=== PATIENT | female | born 1965 | race Caucasian/White ===

== ENCOUNTER 2024-08-16 16:10 | Outpatient (REF) | payer MEDICAID, SELFPAY ==
[2024-08-16 18:06] LABS: Anion Gap 10 (12-20); Blood Urea Nitrogen 15 mg/dL (9-16); Calcium 8.8 mg/dL (8.4-10.2); Carbon Dioxide 27 mmol/L (22-29); Chloride 109 mmol/L (96-108); Estimated Glomerular Filt Rate > 60; Glucose Random 81 mg/dL (60-115); Potassium 3.9 mmol/L (3.3-5.1); Sodium 142 mmol/L (135-145)
[2024-08-17 07:59] LABS: HBS Num1 0.74 mIU/mL (0-7.99); HBc Num1 0.11 S/CO (0.00-0.79); HBsAGNum1 0.29 S/CO (0.00-0.99); HIV AB/AG Nonreactive (Nonreactive); HIV Num 1 0.06 S/CO (0.00-0.99); Hepatitis B Core Antibody Nonreactive (Nonreactive); Hepatitis B Surface Antigen Negative (Negative); ~HepC Num1 0.09 S/CO (0.00-0.79); ~Hepatitis B Surface Antibody NONREACTIVE (Nonreactive); ~Hepatitis C Antibody Nonreactive (Nonreactive)
[2024-08-17 08:02] LABS: Syphilis Screen Nonreactive (Nonreactive)
[2024-08-19 05:03] LABS: TS Negative Control Passed; TS Panel A 0; TS Panel B 5; TS Positive Control Passed; TSpotTB Borderline (Negative)
== END 2024-08-16 16:11 | disposition home or self-care (01) ==
LOC: HO.CHCLDS 16:10
PROVIDERS: Family Medicine; Visit Provider Internal Medicine
DX: I10 Essential (primary) hypertension (principal); Z13.9 Encounter for screening, unspecified
CPT/HCPCS: 36415; 80048; 86481; 86704; 86706; 86780; 86803; 87340; 87389

== ENCOUNTER 2024-08-26 09:48 | Outpatient (REF) | payer MEDICAID, SELFPAY ==
[2024-08-26 11:26] LABS: Cholesterol 234 mg/dL (<200); HDL Cholesterol 42 mg/dL (>40); LDL Cholesterol Calculated 144 mg/dL (<100); Triglycerides 240 mg/dL (<150)
[2024-08-28 20:23] LABS: TS Negative Control Passed; TS Panel A 0; TS Panel B 7; TS Positive Control Passed; TSpotTB Borderline (Negative)
[2024-08-30 23:19] LABS: Metanephrine, Free <25 pg/mL (<=57); Normetanephrines, Free 139 pg/mL (<=148); Total Metanephrine, Free 139 pg/mL (<=205)
[2024-09-02 17:28] LABS: Aldosterone/Renin Ratio 11.3 Ratio (0.9-28.9); Plasma Renin Activity 0.53 ng/mL/h (0.25-5.82)
== END 2024-08-26 09:49 | disposition home or self-care (01) ==
LOC: HO.CHCLDS 09:48
PROVIDERS: Family Medicine; Visit Provider Internal Medicine
DX: I10 Essential (primary) hypertension (principal); E78.5 Hyperlipidemia, unspecified; Z11.1 Encounter for screening for respiratory tuberculosis
CPT/HCPCS: 36415; 80061; 82088; 83835; 86481

== ENCOUNTER 2024-09-02 09:33 | Outpatient (REF) | payer MEDICAID, SELFPAY ==
--- NOTE | ~2024-09-02 | XR_ITS ---
EXAMINATION: XR CHEST CLINICAL INFORMATION: bordeline T spot COMPARISON: None available. TECHNIQUE: 2 views of the chest were obtained. FINDINGS: The cardiac, hilar, and mediastinal contours are normal. The lungs are clear bilaterally. There is no pneumothorax or pleural effusion. There is no focal osseous or soft tissue abnormality. XR/XR chest 2V IMPRESSION: No active pulmonary disease. Electronically signed by: Emile Bergeron MD 09/02/2024 09:55 AM EDT
--- OUTSIDE RECORDS SUMMARY | 2024-09-02 10:04 | XMS_ITS | Clinical Summary ---
Author Organization [employer] Address [address] [place] [address] [address] [place] [address] Care Team Providers Care Checkout Operator Name Role Phone America Babb MD Primary Care Provider [phone] Allergies No known active allergies Medications meclizine (Antivert) 25 MG tablet Take 25 mg by mouth if needed in the morning, at noon, and at bedtime. 06/05/19 25 Active ondansetron ODT (Zofran-ODT) 4 MG disintegrating tablet Take 4 mg by mouth every 8 (eight) hours if needed. 06/05/19 25 Active NIFEdipine CC (Adalat CC) 30 MG 24 hr tabletIndications :Primary hypertension Take 2 tablets (60 mg) by mouth Once per day. 30 tablet 3 07/09/19 25 Active olmesartan (Benicar) 20 MG tabletIndications :Primary hypertension Take 1 tablet (20 mg) by mouth Once per day. 30 tablet 11 08/17/19 25 026 Active atenolol (Tenormin) 50 MG tabletIndications :Primary hypertension Take 0.5 tablets (25 mg) by mouth Once per day. 15 tablet 1 08/31/19 25 Active atorvastatin (Lipitor) 80 MG tabletIndications :Hyperlipidemia, unspecified hyperlipidemia type Take 1 tablet (80 mg) by mouth at bedtime. 30 tablet 11 08/31/19 25 026 Active atorvastatin (Lipitor) 80 MG tablet Take 80 mg by mouth at bedtime. 06/05/19 25 025 Discontinued(Re order (will not trigger notification to Pharmacy)) olmesartan (Benicar) 5 MG tablet Take 1 tablet (5 mg) by mouth Once per day. 90 tablet 1 06/09/19 25 025 Discontinued(Do se adjustment) atenolol (Tenormin) 50 MG tablet Take 0.5 tablets (25 mg) by mouth Once per day. 15 tablet 1 06/09/19 25 025 Discontinued(Re order (will not trigger notification to Pharmacy)) olmesartan (Benicar) 5 MG tabletIndications :Primary hypertension 2 tabs once a day 60 tablet 11 08/07/19 025 Discontinued Active Problems Problem Noted Date Diagnosed Date Primary hypertension 06/09/2024 Assessment & Plan (06/11/2024 10:15 AM EST): Uncontrolled. Target < 140/90 mmHg Nursing Visit Instructions: - If SBP < 140/DBP <90 mmHg in more than 75% of home self-monitoring, continue current medication regimen and make f/u with PCP in 3 month - If SBP >140-165/DBP >90-115 mmHg , add incr olmesartan and f/u with PCP in 1 month - If SBP > 165/ DBP> 115 mmHg, consult with covering provider - If SBP <90/DBP <50 mmHg, consult with covering provider. Dizziness 06/04/2024 Assessment & Plan (06/11/2024 10:16 AM EST): In the setting of ? Vestibular neuritis, still having nystagmus, reviewed ED notes. Labs reviewed. Cont current meds, rtc of worsening/no improvement Encounters Date Type Department Care Team Description 09/01/2024 Telephone [facility] [address], [place] [phone] America Babb MD Lab Results 08/30/2024 Telephone [facility] [address] [place] [address] Dipti Martinez MD 08/27/2024 Orders Only [facility] [address], [place] [phone] Dipti Martinez MD Encounter for health-related screening (Primary Dx) 08/26/2024 Telephone [facility] [address], [place] [phone] Tara Dias MD Results 08/20/2024 Telephone [facility] [address] [place] [address] America Babb MD Results 08/19/2024 Telephone [facility] [address] [address] Tiffany Fuller DO Results 08/16/2024 3:45 PM EDT Office Visit [facility] [address] [place] [address] Dipti Martinez MD Primary hypertension (Primary Dx) 08/16/2024 Travel 08/06/2024 10:45 AM EST Clinical Support [facility] [address] [place] [address] Wing Oro RN Primary hypertension [I10] 08/06/2024 Orders Only [facility] [address] [place] [phone] Dipti Martinez MD Primary hypertension (Primary Dx); Encounter for health-related screening 08/06/2024 Travel 07/30/2024 10:30 AM EST Clinical Support [facility] [address] [place] [address] Wing Oro RN Primary hypertension [I10] 07/30/2024 Travel 07/09/2024 10:30 AM EST Clinical Support [facility] [address] [place] [address] Wing Oro RN Primary hypertension [I10] 07/09/2024 Orders Only [facility] [address] [place] [address] Dipti Martinez MD Primary hypertension (Primary Dx) 07/09/2024 Travel 06/29/2024 1:00 PM EST Clinical Support [facility] [address] [place] [address] Delilah Shahid RN Primary hypertension 06/29/2024 Orders Only [facility] [address] [place] [phone] Marisol Michael MD 06/29/2024 Travel 06/15/2024 Telephone [facility] [address] [place] [address] America Babb MD No Show 06/11/2024 Telephone [facility] [address] [place], [place] [phone] America Babb MD 06/09/2024 10:45 AM EST Office Visit [facility] [address], [place] [phone] America Babb MD Primary hypertension (Primary Dx); Dizziness; Hyperlipidemia, unspecified hyperlipidemia type; Breast cancer screening by mammogram; Colon cancer screening; Encounter for health-related screening 06/09/2024 Travel 06/08/2024 Telephone [facility] [address] [place] [address] America Babb MD CHART PREP from Last 3 Months Family History Medical History Relation Name Comments Diabetes Father Hypertension Father Thyroid disease Mother Vertigo Mother Hypertension Sister Thyroid disease Sister Relation Name Status Comments Father Mother Sister Social History Tobacco Use Types Packs/Day Years Used Date Smoking Tobacco: Never Passive Smoke Exposure: Never Smokeless Tobacco: Never Tobacco Cessation:Counseling Given: Not Answered Alcohol Use Standard Drinks/Week Comments Yes 0 (1 standard drink = 0.6 oz pur e alcohol) Social Depression Answer Date Recorded Patient Health Questionnaire-9 Score 2 06/09/2024 Patient Health Questionnaire-9 Score 2 06/09/2024 Last PHQ-9: Questionnaire Data Not on file 0 06/09/2024 Housing Stability Answer Date Recorded What is your housing situation today? I have yahir lanier 06/01/[address] you li ve. Do you have problems with any of the following? None of the above 06/01/2024 Food Insecurity Answer Date Recorded Within the past 12 months, y ou worried that your food would run out before you got money to buy more: Never True 06/01/2024 Within the past 12 months,th e food you bought just didn't last and you didn't have enough money to get more: Never True Transportation Answer Date Recorded In the past 12 months, has l ack of transportation kept you from medical appts, meetings, work or from getting things needed for daily living? Yes, it has kept me from medical appointments or getting medications. 06/01/2024 Utilities Answer Date Recorded In the past 12 months, has t he electric, gas, oil or water company threatened to shut off services in your home? No 06/01/2024 Depression Answer Date Recorded Patient Health Questionnaire-2 Score 0 06/09/2024 Internet Access Answer Date Recorded Internet Access Q1 Yes 06/01/2024 Internet Access Q2 Not on file 06/01/2024 Comments Unknown Sex and Gender Information Value Date Recorded Sex Assigned at Female 06/09/2024 10:23 AM EST Legal Sex Female 10:40 AM EDT Gender Identity Female 06/09/2024 10:23 AM EST Sexual Orientation Straight 06/09/2024 10 :23 AM EST Last Filed Vital Signs Vital Sign Reading Time Taken Comments Blood Pressure 142/78 08/16/2024 3:47 PM EDT Pulse 78 08/16/2024 3:47 PM EDT Temperature 36.7 ??C (98.1 ??F) 08/16/2024 3:47 PM ED T Respiratory Rate 20 08/16/2024 3:47 PM EDT Oxygen Saturation 98% 08/16/2024 3:47 PM EDT Inhaled Oxygen Concentration - - Weight 71.4 kg (157 lb 6.4 oz) 08/16/2024 3:47 P M EDT Height 151 cm (4' 11.45 ) 08/16/2024 3:47 PM EDT Body Mass Index 31.31 08/16/2024 3:47 PM EDT Plan of Treatment Upcoming Encounters Date Type Department Care Team (Late st Contact Info) Description 09/15/2024 2:45 PM EDT Clinical Support [facility] [address] [place] [address] Health Maintenance Due Date Last Done Comments CT Colonography 1965 Colonoscopy 1965 Colorectal Cancer Screening 1965 FIT DNA/Cologuard 1965 FIT 1965 FOBT 1965 Sigmoidoscopy 1965 Hepatitis B Vaccines (1 of 3 - 19+ 3-dose series) 1984 Pap Smear 1986 Cervical Cancer Screening 09/07/1995 HPV/Cotest 09/07/1995 Mammogram 2005 Pneumococcal Vaccine: 50+ Years (1 of 1 - PCV) 09/07/2015 Influenza Vaccine (#1) 2024 Postp oned from 02/01/2024 (Patient Refused) SDOH Screening 06/01/2025 06/01/2024 COVID-19 Vaccine (1 - 2023-2 5 season) 2025 Postponed from 01/31 (Patient Refused) DTaP/Tdap/Td Vaccines (1 - Tdap) 06/09/2025 Postponed from 09/06 (Patient Refused) Depression Screening 06/09/2025 06/09/2024, 06/09/2024 Zoster Vaccines (1 of 2) 06/09/2025 Pos tponed from 09/07/2015 (Patient Refused) Alcohol/Substance Use Screening 08/16/2025 08/16/2024 Tobacco Screening 08/16/2025 08/16/2024 Lipid Panel 08/26/2029 08/26/2024 RSV Patients and Patients Aged 60 years or older (1 - 1-dose 75+ series) 2040 HIV Screening Completed 08/16/2024 Hepatitis C Screening Completed 08/16/2024 HIB Vaccines Aged Out No longer eligi ble based on patient's age to complete this topic HPV Vaccines Aged Out No longer eligi ble based on patient's age to complete this topic Hepatitis A Vaccines Aged Out No long er eligible based on patient's age to complete this topic IPV Vaccines Aged Out No longer eligi ble based on patient's age to complete this topic Meningococcal Vaccine Aged Out No dania christina eligible based on patient's age to complete this topic RSV under 20 months Aged Out No longe r eligible based on patient's age to complete this topic Rotavirus Vaccines Aged Out No longer eligible based on patient's age to complete this topic Procedures Procedure Name Priority Date/Time Associated Diagnosis Comments XR CHEST 2 VIEWS Routine 09/02/2024 9:40 AM EDT Encounter for health-related screening T-SPOT(R).TB Routine 08/26/2024 10:34 AM EDT Encounter for health-related screening METANEPHRINES, FRACT, FREE, LC/MS/MS, PLASMA Routine 08/26/2024 10:34 AM EDT Primary hypertension LIPID PANEL, STANDARD Routine 08/26/2024 10:34 AM EDT Hyperlipidemia, unspecified hyperlipidemia type BASIC METABOLIC PANEL Routine 08/16/2024 4:16 PM EDT Primary hypertension HEPATITIS B SURFACE ANTIBODY, QUALITATIVE Routine 08/16/2024 4:16 PM EDT Encounter for health-related screening HEPATITIS B CORE AB TOTAL Routine 08/16/2024 4:16 PM EDT Encounter for health-related screening HEPATITIS B SURFACE ANTIGEN, EIA Routine 08/16/2024 4:16 PM EDT Encounter for health-related screening T-SPOT(R).TB Routine 08/16/2024 4:16 PM EDT Encounter for health-related screening SYPHILIS SCREEN Routine 08/16/2024 4:16 PM EDT Encounter for health-related screening HEPATITIS C AB W/REFL TO HCV RNA, QN, PCR Routine 08/16/2024 4:16 PM EDT Encounter for health-related screening HIV 1/2 ANTIGEN/ANTIBODY, FOURTH GENERATION W/RFL Routine 08/16/2024 4:16 PM EDT Encounter for health-related screening from Last 3 Months Results * XR Chest 2 Views (09/02/2024 9:40 AM EDT) Anatomical Region Laterality Modality Chest Radiographic Val ging 09/02/2024 9:40 AM EDT Narrative 09/02/2024 9:59 AM EDT ? [facility] ?[address] ?[place] [address] ?XRay Report ? Signed ? Patient: Nova Conrad,Ladonna M ?MR#: ?? [id number] ? : 1965 ?Acct:[id number] ? Age/Sex: 58 / F ?ADM Date: 04/03/25 ? Loc: HO.XRAY ? Attending Dr: America Babb MD ? Ordering Physician: Dipti Martinez MD ?? Date of Service: 09/02/24 ?? Procedure(s): XR chest 2V ?? Accession Number(s): [id number] ? cc: Dipti Martinez MD; America Babb MD ? EXAMINATION: ?? XR CHEST ? CLINICAL INFORMATION: ?? bordeline T spot ? COMPARISON: ?? None available. ? TECHNIQUE: ?? 2 views of the chest were obtained. ? FINDINGS: ?? The cardiac, hilar, and mediastinal contours are normal. ? The lungs are clear bilaterally. There is no pneumothorax or pleural ?? effusion. ? There is no focal osseous or soft tissue abnormality. ? XR/XR chest 2V ?? IMPRESSION: ?? No active pulmonary disease. ? Electronically signed by: ??Emile Bergeron MD ??09/02/2024 09:55 AM EDT RP ? Dictated By: ?Emile Bergeron MD ? Signed By: ?<Electronically signed by Emile Bergeron MD in OV> ?09/02/24 0955 ? DD/ 0940 ? TD/TT: 09/02/24 0946 ? Heating Repair Technician: ? Procedure Note Fabi, Image - 09/02/[address] [address] XRay Report Signed Patient: Ladonna Burnham MMR#: [id number] : 1965Acct:[id number] Age/Sex: 58 / FADM Date: 09/02/24 Loc: [facility] Attending Dr: America Babb MD Ordering Physician: Dipti Martinez MD Date of Service: 09/02/24 Procedure(s): XR chest 2V Accession Number(s): [id number] cc: Dipti Martinez MD; America Babb MD EXAMINATION: XR CHEST CLINICAL INFORMATION: bordeline T spot COMPARISON: None available. TECHNIQUE: 2 views of the chest were obtained. FINDINGS: The cardiac, hilar, and mediastinal contours are normal. The lungs are clear bilaterally. There is no pneumothorax or pleural effusion. There is no focal osseous or soft tissue abnormality. XR/XR chest 2V IMPRESSION: No active pulmonary disease. Electronically signed by: Emile Bergeron MD 09/02/2024 09:55 AM EDT RP Dictated By: Emile Bergeron MD Signed By: <Electronically signed by Emile Bergeron MD in OV> 09/02/2455 DD/ 9 TD/TT: 09/02/24945 Heating Repair Technician: us Dipti Martinez MD IMG XR PROCEDURES Edited Re sult - Final * Metanephrines, Fractionated, Free, LC/MS/MS, Plasma (08/26/2024 10:34 AM EDT) Metanephrine, Free <25 <=57 pg/mL [facility] Comment:This test was develo ped and its analytical performancecharacteristics have been determined by [employer] [place], [place]. It hasnot been cleared or approved by the U.S. Food and DrugAdministration. This assay has been validated pursuantto the CLIA regulations and is used for clinicalpurposes. Normetanephrine, Free 139 <=148 pg/mL [facility] Comment:This test was develo ped and its analytical performancecharacteristics have been determined by [employer] [place], [place]. It hasnot been cleared or approved by the U.S. Food and DrugAdministration. This assay has been validated pursuantto the CLIA regulations and is used for clinicalpurposes. Total, Free (MN+NMN) 139 <=205 pg/mL [facility] Comment: For additional information, please refer tohttp://education.[employer]/faq/MetFractFree(This link is being provided for informational/educatioinformational/educational purposes only.)Elevations >4-fold upper reference range: stronglysuggestive of a pheochromocytoma(1).Elevations >1- 4-fold upper reference range:significant but not diagnostic, may be due tomedications or stress. Suggest running 24 hr urinefractionated metanephrines and/or serum Chromagranin Afor confirmation.Reference:(1)Lesli Love et al, Plasma Chromogranin Aor Urine Fractionated Metanephrines Follow-Up TestingImproves the Diagnostic Accuracy of Plasma FractionatedMetanephrines for Pheochromocytoma. The Journal ofClinical Endocrinology # Metabolism 93(1), 91-95, 2007.This test was developed and its analytical performancecharacteristics have been determined by [employer] [place], [place]. It hasnot been cleared or approved by the U.S. Food and DrugAdministration. This assay has been validated pursuantto the CLIA regulations and is used for clinicalpurposes.THIS TEST WAS PERFORMED AT:[facility] [place], [place] ??[id number] HAY MD,PHD Blood Venous blood specimen / Unknown 08/26/2024 10:34 AM EDT 08/26/2024 10:34 AM EDT us Dipti Martinez MD LAB BLOOD ORDERABLES Final Result [facility] [address] [place] [phone] * (ABNORMAL) T-SPOT??.TB (08/26/2024 10:34 AM EDT) Only the most recent of2 resultswithin the time period is included. T Spot TB Borderli ne(A) Negative [facility] Comment:The patient's test r esult cannot be definitivelyclassified as positive or negative. Retesting of thepatient is recommended although there is no setguideline established for the time interval betweenan initial borderline result and a retest.The T-SPOT.TB is a diagnostic aid. If the test resultremains borderline upon retesting, other diagnosticsand/or epidemiologic information should be used tohelp determine the Mycobacterium tuberculosis infectionstatus of the patient.The T- SPOT.TB test is qualitative and results arereported as positive, borderline, or negative, giventhat the test controls perform as expected. In linewith the Centers for Disease Control and Prevention's2010 recommendation to report quantitative measurementsalongside the qualitative result, the laboratoryprovides spot counts for informational purposes only.The T-SPOT.TB test should not be interpreted as aquantitative test. TS PANEL A 0 [facility] TS PANEL B 7 [facility] Negative Control Passed [facility] Positive Control Passed [facility] Comment:For additional infor frandy, please refer tohttp://education.[employer]/faq/XYP091(This link is being provided for informational/educational purposes only.)REPORT COMMENT:REC'D AT [facility] TEST WAS PERFORMED AT:[employer] [id number] [place] [address]DXAFEAVBRIAN HAY MD,PHD 08/26/2024 10:3 4 AM EDT 08/26/2024 10:34 AM EDT us Dipti Martinez MD LAB BLOOD ORDERABLES Final Result [facility] [address] [place], [place] [phone] * (ABNORMAL) Lipid Panel, Standard (08/26/2024 10:34 AM EDT) Triglycerides 240(H) <150 mg/dL [facility] Comment:Desirable Triglyceri de: less than 150 mg/dLBorderline High Triglyceride 150-199 mg/dLHigh Triglyceride: 200-499 mg/dLVery High Triglyceride: greater than or equal to 5OO mg/dL Cholesterol 234(H) <200 mg/dL [facility] Comment:Desirable Cholestero l: less than 200 mg/dLBorderline High Cholesterol: 200-239 mg/dLHigh Cholesterol: greater than 239 mg/dL LDL Cholesterol Calculated 144(H) <100 mg/dL [facility] Comment:Desirable LDL: less than 100 mg/dLNear Optimal/Above Optimal LDL: 110- 129 mg/dLBorderline High LDL: 130-159 mg/dLHigh LDL: 160-189 mg/dLVery High LDL: greater than or equal to 190 mg/dL HDL Cholesterol 42 >40 mg/dL [facility] Comment:Desirable HDL: great er than 40 mg/dL Note: This HDL assay may give artificially low results in patients with liver disease. Blood Venous blood specimen / Unknown 08/26/2024 10:34 AM EDT 08/26/2024 10:34 AM EDT America Babb MD LAB BLOOD ORDERABLES Final Re sult Performing Organization Address [facility] Co de Phone Number [facility] [address] [place] [phone] * Syphilis Screen (08/16/2024 4:16 PM EDT) Syphilis Screen Nonreactive Nonreactive [facility] Blood 08/16/2024 4:16 PM EDT 08/16/2024 5:25 PM EDT America Babb MD LAB BLOOD ORDERABLES Final Re sult Performing Organization Address City/[facility] Co de Phone Number [facility] [address] [place] [phone] * Hepatitis C Antibody with Reflex to HCV, RNA, Quantitative, Real-Time PCR (08/16/2024 4:16 PM EDT) Hepatitis C Antibody Nonreactive Nonreactive [facility] Comment:Antibodies to HCV no t detected; does not exclude early acuteHCV infection. Blood Venous blood specimen / Unknown 08/16/2024 4:16 PM EDT 08/16/2024 5:25 PM EDT America Babb MD LAB BLOOD ORDERABLES Final Re sult Performing Organization Address [facility]/ZIP Co de Phone Number [facility] [address] [place] [phone] * Hepatitis B surface antigen, EIA (08/16/2024 4:16 PM EDT) Hepatitis B Surface Ag Negative Negative [facility] Blood Venous blood specimen / Unknown 08/16/2024 4:16 PM EDT 08/16/2024 5:25 PM EDT America Babb MD LAB BLOOD ORDERABLES Final Re sult Performing Organization Address [facility] Co de Phone Number [facility] [address] [place] [phone] * Hepatitis B Core Antibody, Total (08/16/2024 4:16 PM EDT) Pathologist [facility] Hepatitis B Core Antibody Nonreactive Nonreactive [facility] Blood Venous blood specimen / Unknown 08/16/2024 4:16 PM EDT 08/16/2024 5:25 PM EDT America Babb MD LAB BLOOD ORDERABLES Final Re sult Performing Organization Address [facility] Co de Phone Number [facility] [address] [place] [phone] * HIV-1/2 Antigen and Antibodies, Fourth Generation, with Reflexes (08/16/2024 4:16 PM EDT) Pathologist [facility] HIV AB/AG Nonreactive Nonreactive [facility] Comment:HIV-1 p24 Ag and/or HIV-1/HIV-2 Ab not detected.A test result that is nonreactive does not exclude thepossibility of exposure to or infection with HIV-1 and/orHIV-2. Nonreactive results in this assay for individualswith prior exposure to HIV-1 and/or HIV-2 may be due toantigen and antibody levels that are below the limit ofdetection of this assay.The [employer] 11niMelinta HIV Ag/Ab Combo assay result andsupplemental assay results should be interpreted inconjunction with the patient's clinical presentation,history and other laboratory results. If the results areinconsistent with clinical evidence, additional testing issuggested to confirm the result. Blood Venous blood specimen / Unknown 08/16/2024 4:16 PM EDT 08/16/2024 5:25 PM EDT America Babb MD LAB BLOOD ORDERABLES Final Re sult Performing Organization Address [facility]/ZIP Co de Phone Number [facility] [address] [place] [phone] * Hepatitis B Surface Antibody, Qualitative (08/16/2024 4:16 PM EDT) ~Hepatitis B Surface Antibody NONREACTIVE Nonreactive [facility] Comment:Nonreactive: < 8.00 mIU/mL Blood Venous blood specimen / Unknown 08/16/2024 4:16 PM EDT 08/16/2024 5:25 PM EDT America Babb MD LAB BLOOD ORDERABLES Final Re sult Performing Organization Address [facility] Co de Phone Number [facility] [address] [place] [phone] * (ABNORMAL) Basic Metabolic Panel (08/16/2024 4:16 PM EDT) Sodium 142 135 - 145 mmol/L [facility] Potassium 3.9 3.3 - 5.1 mmol/L [facility] Chloride 109(H) 96 - 108 mmol/L [facility] Carbon Dioxide 27 22 - 29 mmol/L [facility] Anion Gap 10(L) 12 - 20 [facility] Urea Nitrogen (BUN) 15 9 - 16 mg/dL [facility] Creatinine, Serum 0.87 0.5 - 1.4 mg/dL [facility] Estimated Glomerular Filt Rate >60 [facility] Comment:Chronic Kidney Disea se: Estimated GFR < 60 mL/min/1.93f3Qbywqu Kidney Disease: Estimated GFR < 15 mL/min/1.73m2 Glucose 81 60 - 115 mg/dL [facility] Calcium 8.8 8.4 - 10.2 mg/dL [facility] Blood Venous blood specimen / Unknown 08/16/2024 4:16 PM EDT 08/16/2024 5:25 PM EDT us Dipti Martinez MD LAB BLOOD ORDERABLES Final Result [facility] [address] [place] [phone] from Last 3 Months Insurance [facility] H[employer] F[employer] Care Teams Checkout Operator Relationship Specialty Start Date End Date America Babb MD [address] [place] [address] [phone] PCP - General Family Medicine 06/09/24
--- OUTSIDE RECORDS SUMMARY | 2024-09-02 10:04 | XMS_ITS | Encounter Summary ---
Author Organization [employer] Address [address] [facility] [address] [place] [address] Care Team Providers Care Salesforce Specialist Name Role Phone America Babb MD Primary Care Provider [phone] Encounter Details Date Type Department Care Team (Late st Contact Info) Description 08/06/2024 Orders Only [facility] MEDICINE [address] [place] [address] Dipti Martinez MD [address] [place] [address] Primary hypertension (Primary Dx); Encounter for health-related screening Social History Tobacco Use Types Packs/Day Years Used Date Smoking Tobacco: Never Passive Smoke Exposure: Never Smokeless Tobacco: Never Alcohol Use Standard Drinks/Week Comments Yes 0 [...] Orientation Straight 06/09/2024 10 :23 AM EST documented as of this encounter Plan of Treatment Upcoming Encounters Date Type Department Care Team (Late st Contact Info) Description 09/15/2024 2:45 PM EDT Clinical Support [facility] MED & PEDS [address] [place] [address] documented as of this encounter Procedures Procedure Name Priority Date/Time Associated Diagnosis Comments T-SPOT(R).TB Routine 08/26/2024 10:34 AM EDT Encounter for health-related screening documented in this encounter Results * (ABNORMAL) T-SPOT??.TB (08/26/2024 10:34 AM EDT) T Spot TB Borderli ne(A) Negative [facility] Comment:The patient's test r esult [...] as aquantitative test. TS PANEL A 0 [facility] TS PANEL B 7 [facility] Negative Control Passed [facility] Positive Control Passed [facility] Comment:For additional infor migdaliaedne, please refer tohttp://education.MindBites/faq/RHY778(This link is being provided for informational/educational purposes only.)REPORT COMMENT:REC'D AT [facility] TEST WAS PERFORMED AT:[employer] [id number] [place] [address]LWXSBTEBRIAN HAY MD,PHD 08/26/2024 10:3 4 AM EDT 08/26/2024 10:34 AM EDT Dipti Martinez MD LAB BLOOD ORDERABLES Final Result [facility] [address] [place] [address] [phone] documented in this encounter Visit Diagnoses Diagnosis Primary hypertension- Primary Unspecified essential hypertension Encounter for health-related screening documented in this encounter Additional Health Concerns Assessment Noted Time PHQ-9 Depression Total Score: 2 06/09/19 25 11:15 AM EST documented as of this encounter Care Teams Salesforce Specialist Relationship Specialty Start Date End Date America Babb MD [address] [place] [id number] PCP - General Family Medicine 06/09/24 documented as of this encounter
--- OUTSIDE RECORDS SUMMARY | 2024-09-02 10:04 | XMS_ITS | Clinical Summary ---
Author Organization [facility] Address [address] [place] [address] Phone Care Team Providers Care Director Of Research And Development Name Role Phone Physician, No Pcp Primary Care Provider Unavaila ble Allergies No known active allergies Medical History Medical History Date Comments Hypertension Social History Tobacco Use Types Packs/Day Years Used Date Smoking Tobacco: Never Assessed Comments Unknown Sex and Gender Information Value Date Recorded Sex Assigned at Not on file Legal Sex Female 9:36 PM EST Gender Identity Not on file Sexual Orientation Not on file Obstetrics History Plan of Treatment Health Maintenance Due Date Last Done Comments Breast Cancer Screening 1965 DTaP,Tdap,and Td Vaccines (1 - Tdap) 1984 Hepatitis B Vaccines (1 of 3 - 19+ 3-dose series) 1984 Cervical Cancer Screening: P ap Smear 1986 Pneumococcal Vaccine: 50+ Ye ars (1 of 1 - PCV) 09/07/2015 Zoster Vaccines (1 of 2) 09/07/2015 COVID-19 Vaccine (2023-2 5 season) 2024 Colorectal Cancer Screening: Colonoscopy 06/04/2024 Depression Screening 06/04/2024 HIV Screening 06/04/2024 Hepatitis C Screening 06/04/2024 Social Influencers of Health Screening 06/04/2024 Influenza Vaccine (Season Ended) 2025 HIB Vaccines Aged Out No longer eligi [...] on patient's age to complete this topic MMR Vaccines Aged Out No longer eligi ble based on patient's age to complete this topic Meningococcal ACWY Vaccine Aged Out N o longer eligible based on patient's age to complete this topic Meningococcal B Vacine Aged Out No lo nger eligible based on patient's age to complete this topic Pneumococcal Vaccine: Pediat rics (0 to 5 Years) and At-Risk Patients (6 to 64 Years) Aged Out No longer eligible b ased on patient's age to complete this topic RSV Immunization Patients Un renny 20 months Aged Out No longer eligible b ased on patient's age to complete this topic Varicella Vaccines Aged Out No longer eligible based on patient's age to complete this topic Insurance MEDICAID - [place] Care Teams Director Of Research And Development Relationship Specialty Start Date End Date Physician, No Pcp PCP - General 06/03/24
--- OUTSIDE RECORDS SUMMARY | 2024-09-02 10:04 | XMS_ITS | Encounter Summary ---
Author Organization [employer] Address [address] [facility] [address] [place] [address] Care Team Providers Care Sales Performance Analyst Name Role Phone America Babb MD Primary Care Provider [phone] Encounter Details Date Type Department Care Team ([facility] st Contact Info) Description 06/29/2024 Orders Only [facility] [address] [place] [address] Marisol Michael MD [address] [place] [address] Social History Tobacco Use Types Packs/Day Years [...] Description 09/15/2024 2:45 PM EDT Clinical Support [facility] MED & PEDS [address] [place] [address] documented as of this encounter Visit Diagnoses Not on filedocumented in this encounter Additional Health Concerns Assessment Noted Time PHQ-9 Depression Total Score: 2 06/09/19 11:15 AM EST documented as of this encounter Care Teams Sales Performance Analyst Relationship Specialty Start Date End Date America Babb MD [address] [place] [address] PCP - General Family Medicine 06/09/24 documented as of this encounter
--- OUTSIDE RECORDS SUMMARY | 2024-09-02 10:04 | XMS_ITS | Encounter Summary ---
Author Organization [employer] Address [address] [facility] 7 [place] [address] Care Team Providers Care Platform Inspector Name Role Phone America Babb MD Primary Care Provider [phone] Encounter Details Date Type Department Care Team ([facility] st Contact Info) Description 08/27/2024 Orders Only [facility] MED & PEDS [address] [place], [place] [phone] Dipti Martinez MD [address] [place], [place] [phone] Encounter for health-related screening (Primary Dx) Social History Tobacco Use Types Packs/Day Years [...] Upcoming Encounters Date Type Department Care Team ([facility] st Contact Info) Description 09/15/2024 2:45 PM EDT Clinical Support [facility] MED & PEDS [address] [place] [address] documented as of this encounter Procedures Procedure Name Priority Date/Time Associated Diagnosis Comments XR CHEST 2 VIEWS Routine 09/02/2024 9:40 AM EDT Encounter for health-related screening documented in this encounter Results * XR Chest 2 Views (09/02/2024 9:40 AM EDT) Anatomical Region Laterality Modality Chest Radiographic Val ging 09/02/2024 9:40 AM EDT Narrative 09/02/2024 9:59 AM EDT ? [facility] ?[address] ?[place] [address] ?XRay Report ? Signed ? Patient: Nova Conrad,Ladonna M ?MR#: ?? [id number] ? : 1965 ?Acct:[id number] ? Age/Sex: 58 / F ?ADM Date: 04/03/25 ? Loc: HO.XRAY ? Attending Dr: America Babb MD ? Ordering Physician: Dipti Martinez MD ?? Date of Service: 09/02/24 ?? Procedure(s): XR chest 2V ?? Accession Number(s): [id number] ? cc: Dipti Martinez MD; America Babb [...] DD/ 0940 ? TD/TT: 09/02/24 0946 ? Analyzer Sales: ? Procedure Note Fabi, yRlee - 09/02/[address] [address] XRay Report Signed Patient: Ladonna Burnham MMR#: [id number] : 1965Acct:[id number] Age/Sex: 58 / FADM Date: 09/02/24 Loc: [facility] Attending Dr: America Babb MD Ordering Physician: Dipti Martinez MD Date of Service: 09/02/24 Procedure(s): XR chest 2V Accession Number(s): [id number] cc: Dipti Martinez MD; America Babb MD [...] Emile Bergeron MD in OV> 09/02/2455 DD/ TD/TT: 09/02/24945 Analyzer Sales: us Dipti Martinez MD IMG XR PROCEDURES Edited Re sult - Final documented in this encounter Visit Diagnoses Diagnosis Encounter for health-related screening- Primary documented in this encounter Additional Health Concerns Assessment Noted Time PHQ-9 Depression Total Score: 2 06/09/19 11:15 AM EST documented as of this encounter Care Teams Platform Inspector Relationship Specialty Start Date End Date America Babb MD [address] [place] [address] PCP - General Family Medicine 06/09/24 documented as of this encounter
--- OUTSIDE RECORDS SUMMARY | 2024-09-02 10:04 | XMS_ITS | Encounter Summary ---
Author Organization [employer] Address [address] [facility] [address] [place] [address] Care Team Providers Care Manager Ob Name Role Phone America Babb MD Primary Care Provider [phone] Encounter Details Date Type Department Care Team ([facility] st Contact Info) Description 08/30/2024 Telephone [facility] CH[facility] MED & PEDS [address] [place], [place] [phone] Dipti Martinez MD [address] [place] [address] Social History Tobacco Use Types Packs/Day Years [...] AM EST documented as of this encounter Miscellaneous Notes * Telephone Encounter - Juana Hernandez RN - 08/30/2024 2:11 PM EDT Patient requesting medication refills for Atorvastatin and Atenolol. Scripts qued and sent to provider. documented in this encounter Plan of Treatment Upcoming Encounters Date Type Department Care Team (Late st Contact Info) Description 09/15/2024 2:45 PM EDT Clinical Support [facility] CH[facility] MED & PEDS [address] [place] [address] documented as of this encounter Visit Diagnoses Diagnosis Hyperlipidemia, unspecified hyperlipidemia type Primary hypertension Unspecified essential hypertension documented in this encounter Additional Health Concerns Assessment Noted Time PHQ-9 Depression Total Score: 2 06/09/19 11:15 AM EST documented as of this encounter Care Teams Manager Ob Relationship Specialty Start Date End Date America Babb MD [address] [place] [address] PCP - General Family Medicine 06/09/24 documented as of this encounter
--- OUTSIDE RECORDS SUMMARY | 2024-09-02 10:04 | XMS_ITS | Encounter Summary ---
Author Organization [employer] Address [address] [facility] [address] [place] [address] Care Team Providers Care Iron Cutter Name Role Phone America Babb MD Primary Care Provider [phone] Encounter Details Date Type Department Care Team ([facility] st Contact Info) Description 07/09/2024 Orders Only [facility] CHC MED & PEDS [address] [place], [place] [phone] Dipti Martinez MD [address] [place] [address] Primary hypertension (Primary Dx) Social History Tobacco Use Types [...] Description 09/15/2024 2:45 PM EDT Clinical Support [facility] CHC MED & PEDS [address] [place] [address] documented as of this encounter Visit Diagnoses Diagnosis Primary hypertension- Primary Unspecified essential hypertension documented in this encounter Additional Health Concerns Assessment Noted Time PHQ-9 Depression Total Score: 2 06/09/19 11:15 AM EST documented as of this encounter Care Teams Iron Cutter Relationship Specialty Start Date End Date America Babb MD [address] [place] [address] PCP - General Family Medicine 06/09/24 documented as of this encounter
--- OUTSIDE RECORDS SUMMARY | 2024-09-02 10:04 | XMS_ITS | Encounter Summary ---
Author Organization [employer] Address [address] [facility] 7[address] [place] [address] Care Team Providers Care Solo Musician Name Role Phone America Babb MD Primary Care Provider [phone] Reason for Visit * Reason Onset Date Comments Lab Results 09/01/2024 Encounter Details Date Type Department Care Team ([facility] st Contact Info) Description 09/01/[address] [facility] MEDICINE [address] [place] [address] America Babb MD [address] [place] [address] Lab Results Social History Tobacco Use Types Packs/Day Years [...] encounter Miscellaneous Notes * Telephone Encounter - Pat Boothe RN - 09/01/2024 3:30 PM EDT Message received from [facility] lab reporting results for T-spot TB ordered on 08/26/24: Borderline. Message sent to ordering provider Dr. Martinez. documented in this encounter Plan of Treatment Upcoming Encounters Date Type Department Care Team (Late st Contact Info) Description 09/15/2024 2:45 PM EDT Clinical Support [facility] MED & PEDS [address] [place] [address] documented as of this encounter Visit Diagnoses Not on filedocumented in this encounter Additional Health Concerns Assessment Noted Time PHQ-9 Depression Total Score: 2 06/09/19 11:15 AM EST documented as of this encounter Care Teams Solo Musician Relationship Specialty Start Date End Date America Babb MD [address] [place] [address] PCP - General Family Medicine 06/09/24 documented as of this encounter
--- OUTSIDE RECORDS SUMMARY | 2024-09-02 10:04 | XMS_ITS | Encounter Summary ---
Author Organization [employer] Address [address] [place] [address] 7[address] [place] [address] Care Team Providers Care Small Engine Mechanic Name Role Phone America Babb MD Primary Care Provider [phone] Reason for Referral * Consultation (Routine) - Authorized Specialty Diagnoses / Procedures Referred By Chilango kim Referred To Contact Gastroenterology Diagnoses Colon cancer screening America Babb MD [address] [place] [address] Phone: tel: fax: Gastroenterology Dept., [address]/[place] [place], Elevator [address] to Level [address] [place], [place] Phone: tel: fax: Referral ID Status Reason Start Date Expiration Date Visits Requested Visits Authorized [id number] Authorized Specialty Services Required 06/09/2024 06/09/2025 1 1 * Imaging (Routine) - Closed Specialty Diagnoses / Procedures Referred By Chilango kim Referred To Contact Radiology Diagnoses Breast cancer screening by mammogram Procedures BI Mammogram Screening Tomosynthesis Bilateral America Babb MD [address] [place] [address] Phone: tel: fax: [facility] Referral ID Status Reason Start Date Expiration Date Visits Re quested Visits Authorized [id number] Closed 06/09/2024 06/09/2025 1 1 Reason for Visit * Reason Comments Establish Care Encounter Details Date Type Department Care Team (Latest Contact Info) Description 06/09/2024 10:45 AM EST Office Visit [facility] [address] [place] [address] America Babb MD [address] [place] [address] Primary hypertension (Primary Dx); Dizziness; Hyperlipidemia, unspecified hyperlipidemia type; Breast cancer screening by mammogram; Colon cancer screening; Encounter for health-related screening Social History Tobacco [...] is your housing situation today? I have yahirejff lanier 06/01/[address] you [...] AM EST documented as of this encounter Last Filed Vital Signs Vital Sign Reading Time Taken Comments Blood Pressure 160/90 06/09/2024 10:37 AM EST Pulse 68 06/09/2024 10:37 AM EST Temperature 36.2 ??C (97.2 ??F) 06/09/2024 10:[address] Respiratory Rate 20 06/09/2024 10:37 AM EST Oxygen Saturation 98% 06/09/2024 10:37 AM EST Inhaled Oxygen Concentration - - Weight 69.1 kg (152 lb 6.4 oz) 06/09/2024 10:37 AM EST Height 149 cm (4' 10.66 ) 06/09/2024 10:37 AM ES T Body Mass Index 31.14 06/09/2024 10:37 AM EST documented in this encounter Progress Notes * America Babb MD - 06/09/2024 10:45 AM EST Subjective Patient ID: Ladonna Martines is a 58 y.o. female who presents for Establish Care. Previous PCP: Bobby Ro PMH: Past Medical History: No date: Hypertension Psurghx: x 3 All: No Known Allergies Meds: Reviewed Past Surgical History: No date: ANKLE FRACTURE SURGERY; Right Comment: [facility] No date: SECTION, LOW TRANSVERSE Comment: x3 No date: TUBAL LIGATION Review of patient's family history indicates: Problem: Thyroid disease Relation: Mother Name: Age of Onset: (Not Specified) Problem: Other (Vertigo) Relation: Mother Name: Age of Onset: (Not Specified) Problem: Diabetes Relation: Father Name: Age of Onset: (Not Specified) Problem: Hypertension Relation: Father Name: Age of Onset: (Not Specified) Problem: Hypertension Relation: Sister Name: Age of Onset: (Not Specified) Problem: Thyroid disease Relation: Sister Name: Age of Onset: (Not Specified) Ladonna is 58 yo F with PMH of HTN, HLD, and vestibular neuritis who presents with her daughter fornew patient visit. Patient was seen in ED at [facility] 6 days ago for vomiting, room- spinning dizziness, and was diagnosed with vestibular neuritis. While at the ED, her systolic BP was 186, and there was concern for stroke. Imaging did not show evidence of CVA. Patient says since leaving hospital four days ago, she has been feeling better. She has been taking nifedipine 30mg, atenolol 50mg, meclizine, atorvastatin 80mg, and Zofran since discharge. She reports that she is still having some room-spinning dizziness and nausea, that is worse when she stands up, but it has improved significantly. Ladonna notes that she has noticed a rash under both her eyes that appeared in the last few days since starting the medications. She says it is a little itchy, but not too bothersome. Ladonna reports that she has hypertension and was prescribed meds for BP control in the [facility], including Olmesartan. She continued taking the meds she had until she ran out 6 months ago.She has been taking her BP at home since, and it has been high, 140-160 systolic. Ladonna denies any other chronic medical conditions. Review of Systems Constitutional: Negative for appetite change, fatigue and fever. HENT: Negative for congestion, postnasal drip and rhinorrhea. Eyes: Negative for discharge and redness. Respiratory: Negative for apnea, cough, chest tightness and shortness of breath. Cardiovascular: Negative for chest pain. Gastrointestinal: Negative for abdominal pain. Endocrine: Negative for polyphagia. Genitourinary: Negative for difficulty urinating, dysuria and urgency. Musculoskeletal: Negative for arthralgias. Neurological: Positive for dizziness. Negative for light-headedness, numbness and headaches. Hematological: Negative for adenopathy. Does not bruise/bleed easily. Objective Visit Vitals BP (!) 160/90 (BP Location: Right arm, Patient Position: Sitting, BP Cuff Size: Adult) Pulse 68 Temp 97.2 ??F (36.2 ??C) (Oral) Resp 20 Ht 4' 10.66 (1.49 m) Wt 152 lb 6.4 oz (69.1 kg) SpO2 98% BMI 31.14 kg/m?? Smoking Status Never BSA 1.69 m?? Physical Exam Constitutional: General: She is not in acute distress. Appearance: She is not ill-appearing. HENT: Head: Normocephalic and atraumatic. Nose: No congestion. Eyes: Extraocular Movements: Right eye: Nystagmus present. Left eye: Nystagmus present. Pulmonary: Effort: Pulmonary effort is normal. No respiratory distress. Breath sounds: Normal breath sounds. Musculoskeletal: Cervical back: Normal range of motion. Neurological: General: No focal deficit present. Mental Status: She is alert. Psychiatric: Mood and Affect: Mood normal. Assessment/Plan Problem List Items Addressed This Visit Dizziness In the setting of ? Vestibular neuritis, still having nystagmus, reviewed ED notes. Labs reviewed. Cont current meds, rtc of worsening/no improvement Primary hypertension - Primary Uncontrolled. Target < 140/90 mmHg Nursing Visit [...] <90/DBP <50 mmHg, consult with covering provider. Other Visit Diagnoses Hyperlipidemia, unspecified hyperlipidemia type Relevant Orders Lipid Panel, Standard Breast cancer screening by mammogram Relevant Orders BI Mammogram Screening Tomosynthesis Bilateral Colon cancer screening Relevant Orders Referral to Gastroenterology Encounter for health-related screening Relevant Orders HIV-1/2 Antigen and Antibodies, Fourth Generation, with Reflexes Hepatitis C Antibody with Reflex to HCV, RNA, Quantitative, Real-Time PCR Syphilis Screen T-SPOT??.TB Hepatitis B surface antigen, EIA Hepatitis B Core Antibody, Total Hepatitis B Surface Antibody, Qualitative * Juana Hernandez RN - 06/09/2024 10:45 AM EST TC to patient via tube coremaker. Reviewed lab results. Patient stated she had stopped taking her atorvastatin bc she had run out. RN educated patient the importance of taking prescribed medication, and how to call for a refill. Patient requested refill for 2 medications. All questions and concerns were addressed with patient. Patient stated verbal understanding and agrees with plan. documented in this encounter Miscellaneous Notes * Assessment & Plan Note - America Babb MD - 06/11/2024 10:15 AM EST Associated Problem(s): Dizziness In the setting of ? Vestibular neuritis, still having nystagmus, reviewed ED notes. Labs reviewed. Cont current meds, rtc of worsening/no improvement * Assessment & Plan Note - America Babb MD - 06/11/2024 10:14 AM EST Associated Problem(s): Primary hypertension Uncontrolled. Target < 140/90 mmHg Nursing Visit [...] <90/DBP <50 mmHg, consult with covering provider. * Result Encounter Note - Dipti Martinez MD - 06/09/2024 10:45 AM EST Please call. Very elevated cholesterol on atorvastatin 80 mg once a day. Please find out if patientis compliant to medication. Advise a low-cholesterol diet and repeat lipid panel in 3 months also. If the lipid panel is still elevated we will consider adding Zetia 10 mg once a day documented in this encounter Plan of Treatment Upcoming Encounters Date Type Department Care Team (Late st Contact Info) Description 09/15/2024 2:45 PM EDT Clinical Support [facility] [address] [place] [address] Scheduled Orders Name Type Priority Associated Diagnoses Orde r Schedule BI Mammogram Screening Tomosynthesis Bilateral Imaging Routine Breast cancer screening by mammogram Expected: 06/09/2024, Expires: 08/07/2025 Scheduled Referrals Name Type Priority Associated Diagnoses Order Schedule Referral to Gastroenterology Outpatient Referral Routine Colon cancer screening Expected: 06/09/2024 (Approximate), Expires: 06/09/2025 documented as of this encounter Procedures Procedure Name Priority Date/Time Associated Diagnosis Comments LIPID PANEL, STANDARD Routine 08/26/2024 10:34 AM EDT Hyperlipidemia, unspecified hyperlipidemia type SYPHILIS SCREEN Routine 08/16/2024 4:16 PM EDT [...] Encounter for health-related screening HEPATITIS B SURFACE ANTIBODY, QUALITATIVE Routine 08/16/2024 4:16 PM EDT Encounter for health-related screening documented in this encounter Results * (ABNORMAL) Lipid Panel, Standard (08/26/2024 10:34 AM EDT) Triglycerides 240(H) <150 mg/dL [facility] Comment:Desirable Triglyceri de: less than 150 mg/dLBorderline High Triglyceride 150-199 mg/dLHigh Triglyceride: 200-499 mg/dLVery High Triglyceride: greater than or equal to 5OO mg/dL Cholesterol 234(H) <200 mg/dL [facility] Comment:Desirable Cholestero l: less than 200 mg/dLBorderline High Cholesterol: 200-239 mg/dLHigh Cholesterol: greater than 239 mg/dL LDL Cholesterol Calculated 144(H) <100 mg/dL [facility] Comment:Desirable LDL: less than 100 mg/dLNear Optimal/Above Optimal LDL: 110- 129 mg/dLBorderline High LDL: 130-159 mg/dLHigh LDL: 160-189 mg/dLVery High LDL: greater than or equal to 190 mg/dL HDL Cholesterol 42 >40 mg/dL [facility] Comment:Desirable HDL: great er than 40 mg/dL Note: This HDL assay may give artificially low results in patients with liver disease. Blood Venous blood specimen / Unknown 08/26/2024 10:34 AM EDT 08/26/2024 10:34 AM EDT us America Babb MD LAB BLOOD ORDERABLES Final Re sult Performing Organization Address [facility] Co de Phone Number [facility] [address] [place] [phone] * Hepatitis B Surface Antibody, Qualitative (08/16/2024 4:16 PM EDT) ~Hepatitis B Surface Antibody NONREACTIVE Nonreactive [facility] Comment:Nonreactive: < 8.00 mIU/mL Blood Venous blood specimen / Unknown 08/16/2024 4:16 PM EDT 08/16/2024 5:25 PM EDT us America Babb MD LAB BLOOD ORDERABLES Final Re sult Performing Organization Address City/[facility]/ZIP Co de Phone Number [facility] [address] [place] [phone] * Hepatitis B Core Antibody, Total (08/16/2024 4:16 PM EDT) Hepatitis B Core Antibody Nonreactive Nonreactive [facility] Blood Venous blood specimen / Unknown 08/16/2024 4:16 PM EDT 08/16/2024 5:25 PM EDT America Babb MD LAB BLOOD ORDERABLES Final Re sult Performing Organization Address [facility]/ZIP Co de Phone Number [facility] [address] [place] [phone] * Hepatitis B surface antigen, EIA (08/16/2024 4:16 PM EDT) Hepatitis B Surface Ag Negative Negative [facility] Blood Venous blood specimen / Unknown 08/16/2024 4:16 PM EDT 08/16/2024 5:25 PM EDT America Babb MD LAB BLOOD ORDERABLES Final Re sult Performing Organization Address [facility] Co de Phone Number [facility] [address] [place] [phone] * (ABNORMAL) T-SPOT??.TB (08/16/2024 4:16 PM EDT) T Spot TB Borderli ne(A) Negative [facility] Comment:The patient's test r esult cannot [...] as aquantitative test. TS PANEL A 0 [facility] TS PANEL B 5 [facility] Negative Control Passed [facility] Positive Control Passed [facility] Comment:For additional infor migdaliaeden, please refer tohttp://education.[employer]/faq/AFX091(This link is being provided for informational/educational purposes only.)REPORT COMMENT:RECD IN CHANTILLYTHIS TEST WAS PERFORMED AT:[employer] [id number] [place] [id number] HAY MD,PHD 08/16/2024 4:16 PM EDT 08/16/2024 5:25 PM EDT us America Babb MD LAB BLOOD ORDERABLES Final Re sult Performing Organization Address [facility]/ZIP Co de Phone Number [facility] [address] [place] [phone] * Syphilis Screen (08/16/2024 4:16 PM EDT) Syphilis Screen Nonreactive Nonreactive [facility] Blood 08/16/2024 4:16 PM EDT 08/16/2024 5:25 PM EDT us America Babb MD LAB BLOOD ORDERABLES Final Re sult Performing Organization Address [facility] Co de Phone Number [facility] [address] [place] [phone] * Hepatitis C Antibody with Reflex to HCV, RNA, Quantitative, Real-Time PCR (08/16/2024 4:16 PM EDT) Hepatitis C Antibody Nonreactive Nonreactive [facility] Comment:Antibodies to HCV no t detected; does not exclude early acuteHCV infection. Blood Venous blood specimen / Unknown 08/16/2024 4:16 PM EDT 08/16/2024 5:25 PM EDT America Babb MD LAB BLOOD ORDERABLES Final Re sult Performing Organization Address [facility] Co de Phone Number [facility] [address] [place] [phone] * HIV-1/2 Antigen and Antibodies, Fourth Generation, with Reflexes (08/16/2024 4:16 PM EDT) [facility] HIV AB/AG Nonreactive Nonreactive [facility] Comment:HIV-1 p24 Ag and/or HIV-1/HIV-2 Ab not detected.A test result that is nonreactive does not exclude thepossibility of exposure to or infection with HIV-1 and/orHIV-2. Nonreactive results in this assay for individualswith prior exposure to HIV-1 and/or HIV-2 may be due toantigen and antibody levels that are below the limit ofdetection of this assay.The [employer] HIV Ag/Ab Combo assay result andsupplemental assay results should be interpreted inconjunction with the patient's clinical presentation,history and other laboratory results. If the results areinconsistent with clinical evidence, additional testing issuggested to confirm the result. Blood Venous blood specimen / Unknown 08/16/2024 4:16 PM EDT 08/16/2024 5:25 PM EDT America Babb MD LAB BLOOD ORDERABLES Final Re sult Performing Organization Address City/[facility]/ZIP Co de Phone Number [facility] [address] [place] [phone] documented in this encounter Visit Diagnoses Diagnosis Primary hypertension- Primary Unspecified essential hypertension Dizziness Dizziness and giddiness Hyperlipidemia, unspecified hyperlipidemia type Breast cancer screening by mammogram Colon cancer screening Special screening for malignant neoplasms, colon Encounter for health-related screening documented in this encounter Additional Health Concerns Assessment Noted Time PHQ-9 Depression Total Score: 2 06/09/19 25 11:15 AM EST documented as of this encounter Care Teams Small Engine Mechanic Relationship Specialty Start Date End Date America Babb MD [address] [place] [address] PCP - General Family Medicine 06/09/24 documented as of this encounter
== END 2024-09-02 09:34 | disposition home or self-care (01) ==
LOC: HO.XRAY 09:33
PROVIDERS: PCP Family Medicine; Visit Provider Family Medicine
DX: R76.11 Nonspecific reaction to tuberculin skin test without active tuberculosis (principal)
CPT/HCPCS: 71046

== ENCOUNTER → 2024-09-02 09:40 | Outpatient (BNV) | payer MEDICAID, SELFPAY | PROVIDERS: PCP Family Medicine; Visit Provider Radiology Diagnostic Radiology | DX: R76.8 Other specified abnormal immunological findings in serum (principal) | CPT/HCPCS: 71046 ==

== ENCOUNTER 2025-03-01 11:45 | Outpatient (REF) | payer SELFPAY ==
--- OUTSIDE RECORDS SUMMARY | 2025-03-01 11:00 | XMS_ITS | Encounter Summary ---
Author Organization [employer] Address [address] [facility] [address] [place] [address] Care Team Providers Care Habilitative Interventionist Name Role Phone America Babb MD Primary Care Provider [phone] Encounter Details Date Type Department Care Team (Latest Contact Info) Description 03/01/2025 11:00 AM EDT Procedure Visit [facility] [address] [place], [place] [phone] America Babb MD [address] [place] [address] Onychomycosis (Primary Dx); Cervical cancer screening Social History Tobacco Use Types Packs/Day [...] Sign Reading Time Taken Comments Blood Pressure 144/88 03/01/2025 11:06 AM EDT Pulse 88 03/01/2025 11:06 AM EDT Temperature 36.6 C (97.8 F) 03/01/2025 11:06 AM EDT Respiratory Rate 20 03/01/2025 11:06 AM EDT Oxygen Saturation - - Inhaled Oxygen Concentration - - Weight 70.3 kg (155 lb) 03/01/2025 11:06 AM EDT Height 149.9 cm (4' 11 ) 03/01/2025 11:06 AM EDT Body Mass Index 31.31 03/01/2025 11:06 AM EDT documented in this encounter Plan of Treatment Scheduled Orders Name Type Priority Associated Diagnoses Orde r Schedule Hepatic Function Panel Lab Routine Onychomycosis Expected: 03/01/2025 (Approximate), Expires: 03/01/2026 Pap Smear Pathology and Cytology Routine Cervical cancer screening Ordered: 03/01/2025 HPV High Risk with Reflex to Subtypes Lab Routine Cervical cancer screening Ordered: 03/01/2025 documented as of this encounter Visit Diagnoses Diagnosis Onychomycosis- Primary Dermatophytosis of nail Cervical cancer screening Screening for malignant neoplasm of the cervix documented in this encounter Additional Health Concerns Assessment Noted Time PHQ-9 Depression Total Score: 2 06/09/19 25 11:15 AM EST documented as of this encounter Care Teams Habilitative Interventionist Relationship Specialty Start Date End Date Babb, America, MD [address] [place] [address] PCP - General Family Medicine 06/09/24 documented as of this encounter
--- OUTSIDE RECORDS SUMMARY | 2025-03-01 13:09 | XMS_ITS | Clinical Summary ---
Author Organization [facility] Address [address] [place] [phone] Phone Care Team Providers Care Oracle Adf Developer Name Role Phone Physician, No Pcp Primary [...] Last Done Comments Breast Cancer Screening 1965 Colorectal Cancer Screening: Colonoscopy 1965 DTaP,Tdap,and Td Vaccines (1 - Tdap) 1984 Hepatitis B Vaccines (1 of 3 - 19+ 3-dose series) 1984 Cervical Cancer Screening: P ap Smear 1986 Pneumococcal Vaccine: 50+ Ye ars (1 of 1 - PCV) 09/07/2015 Zoster Vaccines (1 of 2) 09/07/2015 Depression Screening 06/02/2024 HIV Screening 06/04/2024 Hepatitis C Screening 06/04/2024 Social Influencers of Health Screening 06/04/2024 COVID-19 Vaccine ( - 2023-2 5 season) 2025 Influenza Vaccine (#1) 2025 RSV Immunization Adult Patie nts (1 - 1-dose 75+ series) 2040 HIB Vaccines Aged Out No longer eligi [...] age to complete this topic Meningococcal B Vaccine Aged Out No l onger eligible based on patient's age to complete this topic RSV Immunization Patients Un renny 20 months Aged Out No longer eligible b ased on patient's age to complete this topic Varicella Vaccines Aged Out No longer eligible based on patient's age to complete this topic Insurance MEDICAID - [place] Care Teams Oracle Adf Developer Relationship Specialty Start Date End Date Physician, No Pcp PCP - General 06/03/24
--- OUTSIDE RECORDS SUMMARY | 2025-03-01 13:09 | XMS_ITS | Encounter Summary ---
Author Organization [facility] Address [address] [address] Phone Care Team Providers Care Automobile Body Repair Chief Name Role Phone Pcp, Unknown Primary Care Provider Unavailabl e Encounter Details Date Type Department Care Team (Late st Contact Info) Description 06/04/2024 Procedure Pass [facility] [address] [place] [address] Social History Tobacco Use Types Packs/Day Years Used Date Smoking Tobacco: Never Assessed Education Answer Date Recorded Are you interested in more education? Not on sophia e 06/04/2024 Are you concerned about learning? Not on file 06/04/2024 No 06/04/2024 No 06/04/2024 Digital Access Answer Date Recorded No 06/04/2024 No 06/04/2024 Reliable internet access at home? Not on file 06/04/2024 Device with a working camera? Not on file Intimate Partner Violence Answer Date R ecorded Are you denied basic needs s uch as food, clothing, or medical care? No 06/04/2024 In the past 12 months have y ou been in a relationship with a person who hurts, threatens, or tries to control you? No 06/04/2024 Are you denied basic needs s uch as food, clothing, or medical care? No 06/04/2024 In the past 12 months have y ou been in a relationship with a person who hurts, threatens, or tries to control you? No 06/04/2024 Comments Unknown Sex and Gender Information Value Date Recorded Sex Assigned at Female 06/04/2024 11:44 AM EST Legal Sex Female 11:08 AM EST Gender Identity Female 06/04/2024 11:44 AM EST Sexual Orientation Don't know 06/04/2024 1: 48 PM EST documented as of this encounter Functional Status * Calculated C-SSRS Risk Score (Lifetime/Recent) Answer Date of Assessment Author No Risk Indicated 06/04/2024 11:45 AM Danielle Boykin RN * [place] Suicide Severity Rating Scale (Screener/Recent Self-Report) Question Answer Date of Assessment Author 1. Wish to be (Past 1 Month) No 06/04/2024 11:45 AM Danielle Boykin RN 2. Non-Specific Active Suici iza Thoughts (Past 1 Month) No 06/04/2024 11:45 AM Virginia Boykin RN 6. Suicidal Behavior (Lifetime) No 11:45 AM Danielle Boykin RN documented as of this encounter Plan of Treatment Not on file documented as of this encounter Visit Diagnoses Not on filedocumented in this encounter Additional Health Concerns Infection Onset Date Last Indicated Resolved Time CoV-Risk 06/04/2024 06/04/2024 06/15/2024 1:22 AM EST documented as of this encounter Care Teams Automobile Body Repair Chief Relationship Specialty Start Date End Date Pcp, Unknown PCP - General 06/04/24 documented as of this encounter Additional Source Comments The information contained in this document represents components of the legal health record. It is not the complete legal health record.[facility]
--- OUTSIDE RECORDS SUMMARY | 2025-03-01 13:09 | XMS_ITS | Encounter Summary ---
Author Organization [facility] Address [address] [place] [phone] Phone Care Team Providers Care Disciplinary Hearing Officer Name Role Phone Pcp, Unknown Primary Care Provider Unavailabl e Encounter Details Date Type Department Care Team (Late st Contact Info) Description 06/04/2024 Procedure Pass [facility], Ct Scan - [address] [address] Social History Tobacco Use Types Packs/Day Years [...] 06/04/2024 11:45 AM Danielle Boykin RN * [place] Suicide Severity Rating Scale (Screener/Recent Self-Report) Question [...] documented as of this encounter Care Teams Disciplinary Hearing Officer Relationship Specialty Start Date End Date Pcp, Unknown PCP - General 06/04/24 documented as of this encounter Additional Source Comments The information contained in this document represents components of the legal health record. It is not the complete legal health record.[facility]
--- OUTSIDE RECORDS SUMMARY | 2025-03-01 13:09 | XMS_ITS | Encounter Summary ---
Author Organization [employer] Address [address] [facility] 7t [place] [address] Care Team Providers Care Electronic Plotting System Operator Name Role Phone America Babb MD Primary Care Provider [phone] Encounter Details Date Type Department Care Team ([facility] Contact Info) Description 02/25/2025 Orders Only [facility] [address] [place] [address] ProviderDeshawn MD Social History Tobacco Use Types Packs/Day Years [...] is your housing situation today? I have yahirjeff lanier 06/01/[address] you [...] on file documented as of this encounter Procedures Procedure Name Priority Date/Time Associated Diagnosis Comments BI US BREAST LIMITED LEFT Routine 01/27/2025 12:45 PM EDT documented in this encounter Results * BI US BREAST LIMITED LEFT (01/27/2025 12:45 PM EDT) Anatomical Region Laterality Modality Ultrasound us Historical Provider MD GILL US PROCEDURES Final R esult documented in this encounter Visit Diagnoses Not on filedocumented in this encounter Additional Health Concerns Assessment Noted Time PHQ-9 Depression Total Score: 2 06/09/19 11:15 AM EST documented as of this encounter Care Teams Electronic Plotting System Operator Relationship Specialty Start Date End Date America Babb MD [address] [place] [address] PCP - General Family Medicine 06/09/24 documented as of this encounter
--- OUTSIDE RECORDS SUMMARY | 2025-03-01 13:09 | XMS_ITS | Encounter Summary ---
Author Organization [employer] Address [address] [facility] 7t [place] [address] Care Team Providers Care Play Therapist Name Role Phone America Babb MD Primary Care Provider [phone] Encounter Details Date Type Department Care Team ([facility] Contact Info) Description 10/15/2024 Orders Only [facility] [address] [place] [address] ProviderDeshawn MD Social History Tobacco Use Types [...] Procedure Name Priority Date/Time Associated Diagnosis Comments US RIGHT BREAST LIMITED ADDITIONAL VIEWS Routine 07/29/2024 1:10 PM EST documented in this encounter Results * US Breast Limited Right Additional Views (07/29/2024 1:10 PM EST) Anatomical Region Laterality Modality Breast Right Ultrasound us Historical Provider MD GILL US PROCEDURES Final R esult documented in this encounter Visit Diagnoses Not on filedocumented in this encounter Additional Health Concerns Assessment Noted Time PHQ-9 Depression Total Score: 2 06/09/19 25 11:15 AM EST documented as of this encounter Care Teams Play Therapist Relationship Specialty Start Date End Date America Babb MD [address] [place] [address] PCP - General Family Medicine 06/09/24 documented as of this encounter
--- OUTSIDE RECORDS SUMMARY | 2025-03-01 13:09 | XMS_ITS | Encounter Summary ---
Author Organization [facility] Address [address] [place] [phone] Phone Care Team Providers Care Annealing Operator Name Role Phone Pcp, Unknown Primary Care Provider Unavailabl e Encounter Details Date Type Department Care Team (Late st Contact Info) Description 06/04/2024 Procedure Pass [facility], [address] [address] Social History Tobacco Use Types Packs/Day Years [...] 06/04/2024 11:45 AM Danielle Boykin RN * [place] Suicide Severity Rating Scale (Screener/Recent Self-Report) Question [...] documented as of this encounter Care Teams Annealing Operator Relationship Specialty Start Date End Date Pcp, Unknown PCP - General 06/04/24 documented as of this encounter Additional Source Comments The information contained in this document represents components of the legal health record. It is not the complete legal health record.[facility]
--- OUTSIDE RECORDS SUMMARY | 2025-03-01 13:10 | XMS_ITS | Clinical Summary ---
Author Organization [facility] Address [address] [address] Phone Care Team Providers Care Livestock Farm Manager Name Role Phone Pcp, Unknown Primary Care Provider Unavailabl e Allergies No known active allergies Medications atenolol (TENORMIN) 50 mg tablet Take 1 tablet (50 mg total) by mouth daily. 30 tablet 6 5 Active atorvastatin (LIPITOR) 80 MG tablet Take 1 tablet (80 mg total) by mouth nightly at bedtime. 30 tablet 6 5 Active meclizine (ANTIVERT) 25 mg tablet Take 1 tablet (25 mg total) by mouth 3 (three) times a day as needed for dizziness. 12 tablet 5 Active NIFEdipine (ADALAT CC) 30 MG 24 hr tablet Take 1 tablet (30 mg total) by mouth daily. 30 tablet 6 5 Active ondansetron (ZOFRAN-ODT) 4 MG disintegrating tablet Take 1 tablet (4 mg total) by mouth every 8 (eight) hours as needed for nausea. 12 tablet 5 Active Active Problems Problem Noted Date Diagnosed Date Dizziness 06/04/2024 Assessment & Plan (06/05/2024 7:02 AM EST): Ddx: subacute stroke involving the brainstem or cerebellar areas. Other possiblities inlcude inner ear disease such as labrynthitis, or vestibulat neuritis. Acute vertigo + nausea and vomiting, suggestive of Central Etiology History of HTN not on medications x 6 months Patient is hypertensive in the 150s over 90s on initial presentation however otherwise she is afebrile stable vitals nontoxic-appearing. Exam notable for horizontal/torsional nystagmus, Romberg positive and unsteady gait with continuous dizziness is concerning for central cause of vertigo. However patient has had the symptoms for over 24 hours now. NIH stroke scale of 0 however posterior strokes typically score low. Labs are grossly unremarkable. CBC reveals no leukocytosis, no left shift, no signs of anemia. BMP is without any electrolyte abnormalities and baseline kidney function. LFTs are within normal limits no signs of hepatobiliary disease. COVID and flu are negative. Ethanol is less than 10. CTA of the head and neck showed no acute intracranial findings, no intracranial aneurysm, atrial venous malformation or large vessel thrombus. No stenosis, occlusion or dissection of the extracranial carotid and vertebral arteries. Plan F/u lipid panel, Hgb A1C, PT/INR, troponin, TSH, ESR, CRP MRI brain stroke protocol TTE without bubble EKG and telemetry while admitted Please ensure 30d mobile cardiac telemetry ordered on discharge to monitor for Afib Systolic BP goal: less than 220 (permissive hypertension, please hold antihypertensives while SBP within goal). -- Goal SBP less than 180 at 24h from LKW, SBP less than 160 on discharge; outpatient SBP goal less than 120-130 as tolerated per PROGRESS/SPRINT/SPS3 trial data [ ] Antiplatelet: Please administer Aspirin 81 PO and Plavix 75 mg daily for 21d followed by antiplatelet monotherapy with ASA 81mg daily or Plavix 75mg daily per primary team. [ ] Statin: Atorvastatin 80mg daily (unless documented allergy), goal LDL less than 70 per SPARCL/TST trial data Recovery: Recommend PT, OT, DISTRICT SALES COORDINATOR consults as appropriate pending clinical course and neurologic deficits Please ensure outpatient Neurology follow-up is arranged Vertigo management: Consider Zofran, Benadryl, Diazepam, or antihistamines. Social History Tobacco Use Types Packs/Day Years [...] Don't know 06/04/2024 1: 48 PM EST Last Filed Vital Signs Vital Sign Reading Time Taken Comments Blood Pressure 167/102 06/05/2024 3:00 PM EST Pulse 77 06/05/2024 3:00 PM EST Temperature 37.2 C (99 F) 06/05/2024 3:00 PM EST Respiratory Rate 20 06/05/2024 3:00 PM EST Oxygen Saturation 99% 06/05/2024 3:00 PM EST Inhaled Oxygen Concentration - - Weight 70.4 kg (155 lb 3.3 oz) 06/05/2024 4:57 A M EST Height 152.4 cm (5') 06/04/2024 8:19 PM EST Body Mass Index 30.31 06/04/2024 8:19 PM EST Plan of Treatment Health Maintenance Due Date Last Done Comments Adult Td,Tdap Booster 1965 BLOOD PRESSURE 1965 DEPRESSION SCREENING 1977 SMOKING Hx and SMOKELESS TOBACCO SCREENING 1978 HEPATITIS C SCREENING 09/07/1983 HIV ONE-TIME SCREENING (18-6 5 YEARS) 09/07/1983 PAP SMEAR 1986 MAMMOGRAM 2005 COLOGUARD 2010 COLONOSCOPY 2010 COLORECTAL CANCER SCREENING 2010 FIT TEST 2010 FOBT 2010 SIGMOIDOSCOPY 2010 VIRTUAL COLONOSCOPY 2010 PNEUMOCOCCAL VACCINES (50+ years) (1 of 1 - PCV) 09/07/2015 ZOSTER VACCINES (1 of 2) 09/07/2015 INFLUENZA VACCINE (#1) 2024 COVID-19 VACCINE (1 - 2023-2 5 season) 2025 SCREENING FOR DIABETES 06/05/2027 , 06/04/2024 LIPID PANEL 06/04/2029 06/04/2024 HEPATITIS A VACCINES Aged Out No long er eligible based on patient's age to complete this topic HIB VACCINES Aged Out No longer eligi ble based on patient's age to complete this topic MENINGOCOCCAL VACCINES (ACWY) Aged Out No longer eligible based on patient's age to complete this topic MENINGOCOCCAL VACCINES (B) Aged Out N o longer eligible based on patient's age to complete this topic Medical Devices Not on file Procedures Procedure Name Priority Date/Time Associated Diagnosis Comments LIPID PANEL Routine 06/04/2024 2:31 PM EST from Last 3 Months or Most Recently Relevant to Health Maintenance Results * (ABNORMAL) Lipid panel (06/04/2024 2:31 PM EST) HDL 63 mg/dL [facility] Comment: Interpretation <40 mg/dL: Low HDL cholesterol (major risk factor for CHD) Greater than or equal to 60 mg/dL: High HDL cholesterol ( negative risk factor for CHD) HDL - cholesterol is affected by a number of factors, e.g. smoking, excerise, hormones, sex and age. CHOLESTEROL 268(H) 0 - 240 mg/dL [facility] TRIGLYCERIDES 101 30 - 160 mg/dL [facility] LDL 185(H) 50 - 129 mg/dL [facility] Comment: LDL levels in terms of risk for coronary heart disease: <100 mg/dL: Optimal 100-129 mg/dL: Near or above optimal 130-159 mg/dL: Borderline high 160-189 mg/dL: High >190 mg/dL: Very High CARDIAC RISK RATIO 4.3 3.3 - 4.4 C [facility] 06/04/2024 2:31 PM EST 06/04/2024 2:35 PM EST us Mariam Rodgers PA-C LAB BLOOD ORDERABLES Final Result [facility] [address] [place] [address] from Last 3 Months or Most Recently Relevant to Health Maintenance Insurance [employer] FULL [employer] [facility] [employer] NET FULL [employer] SAFETY NET FULL Member Subscriber Plan / Payer (Ef fective 2024-) Name:Ladonna Burnham Relation to Subscriber:Self Name:Ladonna Burnham Payer ID:Not on file Group ID:Not on file Type:Medicaid Address: [place] [id number] [employer] SAFETY NET FULL [employer] [facility] SAFETY NET FULL [employer] NET FULL Advance Directives For more information, please contact: [phone] (9AM - 5PM Danielle/[facility], Friday-Friday) * Full Code (Latest Code Status on File) Date Activated Date Inactivated Comments 06/04/2024 8:18 PM Question Answer Comments Code Status Confirmed With: Patient Care Teams Livestock Farm Manager Relationship Specialty Start Date End Date Pcp, Unknown PCP - General 06/04/24 Additional Source Comments The information contained in this document represents components of the legal health record. It is not the complete legal health record.[facility]
--- OUTSIDE RECORDS SUMMARY | 2025-03-01 13:10 | XMS_ITS | Clinical Summary ---
Author Organization [employer] Address [address] [facility] 7t [place] [address] Care Team Providers Care Stationary Engineer Supervisor Name Role Phone America Babb MD Primary Care Provider [phone] Allergies No known active allergies Medications atorvastatin (Lipitor) 80 MG tabletIndications :Hyperlipidemia, unspecified hyperlipidemia type Take 1 tablet (80 mg) by mouth at bedtime. 90 tablet 1 02/22/20 25 Active ezetimibe (Zetia) 10 MG tablet Take 1 tablet (10 mg) by mouth Once per day. 90 tablet 1 02/22/20 25 Active NIFEdipine CC (Adalat CC) 30 MG 24 hr tabletIndications :Primary hypertension TAKE 2 TABLETS BY MOUTH ONCE DAILY 180 tablet 1 02/22/20 25 Active olmesartan (Benicar) 20 MG tabletIndications :Primary hypertension Take 1 tablet (20 mg) by mouth Once per day. 90 tablet 1 02/22/20 25 Active atenolol (Tenormin) 25 MG tabletIndications :Primary hypertension Take 0.5 tablets (12.5 mg) by mouth Once per day. 90 tablet 1 02/22/20 25 Active NIFEdipine CC (Adalat CC) 30 MG 24 hr tabletIndications :Primary hypertension TAKE 2 TABLETS BY MOUTH ONCE DAILY 180 tablet 1 10/15/19 25 025 Discontinued(Re order (will not trigger notification to Pharmacy)) olmesartan (Benicar) 20 MG tabletIndications :Primary hypertension Take 1 tablet (20 mg) by mouth Once per day. 90 tablet 1 10/15/19 25 025 Discontinued(Re order (will not trigger notification to Pharmacy)) ezetimibe (Zetia) 10 MG tablet Take 1 tablet (10 mg) by mouth Once per day. 90 tablet 1 10/15/19 025 Discontinued(Re order (will not trigger notification to Pharmacy)) atorvastatin (Lipitor) 80 MG tabletIndications :Hyperlipidemia, unspecified hyperlipidemia type Take 1 tablet (80 mg) by mouth at bedtime. 90 tablet 1 10/15/19 025 Discontinued(Re order (will not trigger notification to Pharmacy)) atenolol (Tenormin) 50 MG tabletIndications :Primary hypertension Take 0.5 tablets (25 mg) by mouth Once per day. 45 tablet 1 10/15/19 25 025 Discontinued(Re order (will not trigger notification to Pharmacy)) atenolol (Tenormin) 50 MG tabletIndications :Primary hypertension Take 0.5 tablets (25 mg) by mouth Once per day. 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 A chest X-ray has been performed. A tuberculin test is recommended to confirm the diagnosis of latent tuberculosis. Plan: - Perform tuberculin skin test - If positive, consider 3-month prophylactic treatment to prevent future activation Hyperlipidemia 10/14/2024 Assessment & Plan (02/22/2025 11:08 AM EDT): Will check lipid panel. Follow-up with results. Assessment & Plan (10/14/2024 1:32 PM EDT): Hyperlipidemia Assessment: Patient's last cholesterol check in July showed elevated triglycerides and cholesterol. She was started on Zetia (ezetimibe) 10 mg and pravastatin (dose not specified) for management. The effectiveness of this regimen has not yet been assessed. Plan: - Continue Zetia (ezetimibe) 10 mg daily - Continue pravastatin (dose not specified) - Prescriptions for both medications will be sent Encounter for preventive care 10/14/2024 Assessment & Plan (10/14/2024 1:33 PM EDT): Preventive Care Assessment: Patient is due for pneumococcal vaccination and has agreed to receive it today. A colonoscopy was ordered in June, but the patient has not been contacted for scheduling. Plan: - Administer pneumococcal vaccine today - Patient to call and schedule colonoscopy appointment - Follow up on colonoscopy referral to [place] due to insurance limitations Primary hypertension 06/09/2024 Assessment & Plan (02/22/2025 11:08 AM EDT): Controlled. Target BP of less than 130/80 mmHg. Will wean off atenolol. Concern of rebound hypertension. Will follow-up in 3 months. Assessment & Plan (10/14/2024 1:32 PM EDT): Assessment: Patient is currently on losartan and nifedipine for blood pressure management. She reports her blood pressure is okay and denies any side effects from the medications. Her current pulse is 74, which is within normal limits. There are no reports of dizziness, suggesting stable blood pressure control. Plan: - Continue current antihypertensive regimen: losartan and nifedipine (doses not specified) - Prescribe atenolol (dose not specified) - Follow up in 4 months for blood pressure check Assessment & Plan (06/11/2024 10:15 AM EST): [...] Encounters Date Type Department Care Team Description 03/01/2025 11:00 AM EDT Procedure Visit [facility] [address] [place] [address] America Babb MD Onychomycosis (Primary Dx); Cervical cancer screening 03/01/2025 Travel 02/28/[address] [facility] [address] [place] [address] America Babb MD chart prep 02/25/2025 [facility] Only [facility] [address] [place] [phone] Deshawn Myaberry MD 02/21/2025 11:00 AM EDT Office Visit [facility] [address] [place] [address] America Babb MD Encounter for health-related screening (Primary Dx); Primary hypertension; Hyperlipidemia, unspecified hyperlipidemia type; Primary hypertension; Screening for colon cancer 02/21/2025 Travel 02/14/2025 Patient Outreach [facility] [address] [place] [phone] America Babb MD Pre-visit Planning (Pre visit planning LVM ) 02/07/[address] [facility] [address] [place] [address] America Babb MD from Last 3 Months Immunizations Immunization Administration Dates Next Due Pneumococcal Conjugate PCV 20 10/14/2024 Family History Medical History Relation Name Comments [...] 20 03/01/2025 11:06 AM EDT Oxygen Saturation 97% 02/21/2025 10:57 AM EDT Inhaled Oxygen Concentration - - Weight 70.3 kg (155 lb) 03/01/2025 11:06 AM EDT Height 149.9 cm (4' 11 ) 03/01/2025 11:06 AM EDT Body Mass Index 31.31 03/01/2025 11:06 AM EDT Plan of Treatment Health Maintenance Due Date Last Done Comments CT Colonography 1965 Colonoscopy 1965 Colorectal Cancer Screening 1965 FIT DNA/Cologuard 1965 FIT 1965 FOBT 1965 Sigmoidoscopy 1965 Hepatitis B Vaccines (1 of 3 - 19+ 3-dose series) 1984 Pap Smear 1986 Cervical Cancer Screening 09/07/1995 HPV/Cotest 09/07/1995 DTaP/Tdap/Td Vaccines (1 - Tdap) 06/09/2025 Postponed from 09/06 (Patient Refused) Depression Screening 06/09/2025 06/09/2024, 06/09/2024 Zoster Vaccines (1 of 2) 06/09/2025 Pos tponed from 09/07/2015 (Patient Refused) Mammogram 07/30/2025 SDOH Screening 10/06/2025 10/06/2024 Influenza Vaccine (#1) 2025 Postp oned from 01/31/2025 (Patient Refused) Alcohol/Substance Use Screening 02/21/2026 02/21/2025 COVID-19 Vaccine (1 - 2023-2 5 season) 2026 Postponed from 01/31 (Patient Refused) Disability Screening 02/21/2026 02/21/2025 Tobacco Screening 03/01/2026 03/01/2025 Lipid Panel 08/26/2029 08/26/2024 RSV Patients and Patients Aged 60 years or older (1 - 1-dose 75+ series) 2040 HIV Screening Completed 08/16/2024 Hepatitis C Screening Completed 08/16/2024 Pneumococcal Vaccine: 50+ Years Completed 10/14/2024 HIB Vaccines Aged Out No longer eligi [...] LIMITED LEFT Routine 01/27/2025 12:45 PM EDT LIPID PANEL, STANDARD Routine 08/26/2024 10:34 AM EDT Hyperlipidemia, unspecified hyperlipidemia type HEPATITIS C AB W/REFL TO HCV RNA, QN, PCR Routine 08/16/2024 4:16 PM EDT Encounter for health-related screening HIV 1/2 ANTIGEN/ANTIBODY, FOURTH GENERATION W/RFL Routine 08/16/2024 4:16 PM EDT Encounter for health-related screening from Last 3 Months or Most Recently Relevant to Health Maintenance Results * BI US BREAST LIMITED LEFT (01/27/2025 12:45 PM EDT) Anatomical Region Laterality Modality Ultrasound us Historical Provider MD GILL US PROCEDURES Final R esult * (ABNORMAL) Lipid Panel, Standard (08/26/2024 10:34 AM EDT) Triglycerides 240(H) <150 mg/dL [facility] Comment:Desirable Triglyceri de: less than 150 mg/dLBorderline High Triglyceride 150-199 mg/dLHigh Triglyceride: 200-499 mg/dLVery High Triglyceride: greater than or equal to 5OO mg/dL Cholesterol 234(H) <200 mg/dL [facility] Comment:Desirable Cholestero l: less than 200 mg/dLBorderline High Cholesterol: 200-239 mg/dLHigh Cholesterol: greater than 239 mg/dL LDL Cholesterol Calculated 144(H) <100 mg/dL [facility] Comment:Desirable LDL: less than 100 mg/dLNear Optimal/Above Optimal LDL: 110- 129 mg/dLBorderline High LDL: 130-159 mg/dLHigh LDL: 160-189 mg/dLVery High LDL: greater than or equal to 190 mg/dL HDL Cholesterol 42 >40 mg/dL [facility] Comment:Desirable HDL: great er than 40 mg/dL Note: This HDL assay may give artificially low results in patients with liver disease. Blood Venous blood specimen / Unknown 08/26/2024 10:34 AM EDT 08/26/2024 10:34 AM EDT America Babb MD LAB BLOOD ORDERABLES Final Re sult Performing Organization Address [facility] Co de Phone Number [facility] [address] [place] [phone] * Hepatitis C Antibody with Reflex to HCV, RNA, Quantitative, Real-Time PCR (08/16/2024 4:16 PM EDT) Hepatitis C Antibody Nonreactive Nonreactive [facility] Comment:Antibodies to HCV no t detected; does not exclude early acuteHCV infection. Blood Venous blood specimen / Unknown 08/16/2024 4:16 PM EDT 08/16/2024 5:25 PM EDT America Babb MD LAB BLOOD ORDERABLES Final Re sult Performing Organization Address [facility] de Phone Number [facility] [address] [place] [phone] * HIV-1/2 Antigen and Antibodies, Fourth Generation, with Reflexes (08/16/2024 4:16 PM EDT) Pathologist [facility] HIV AB/AG Nonreactive Nonreactive [facility] Comment:HIV-1 p24 Ag and/or HIV-1/HIV-2 Ab not detected.A test result that is nonreactive does not exclude thepossibility of exposure to or infection with HIV-1 and/orHIV-2. Nonreactive results in this assay for individualswith prior exposure to HIV-1 and/or HIV-2 may be due toantigen and antibody levels that are below the limit ofdetection of this assay.The Is That [employer]101 HIV Ag/Ab Combo assay result andsupplemental assay results should be interpreted inconjunction with the patient's clinical presentation,history and other laboratory results. If the results areinconsistent with clinical evidence, additional testing issuggested to confirm the result. Blood Venous blood specimen / Unknown 08/16/2024 4:16 PM EDT 08/16/2024 5:25 PM EDT America Babb MD LAB BLOOD ORDERABLES Final Re sult [facility] [address] [place] [phone] from Last 3 Months or Most Recently Relevant to Health Maintenance Insurance [facility] Care Teams Stationary Engineer Supervisor Relationship Specialty Start Date End Date America Babb MD [address] [place] [phone] PCP - General Family Medicine 06/09/24
--- OUTSIDE RECORDS SUMMARY | 2025-03-01 13:10 | XMS_ITS | Encounter Summary ---
Author Organization [employer] Address [address] [facility] 7t [place] [address] Care Team Providers Care Base Engineer Name Role Phone America Babb MD Primary Care Provider [phone] Encounter Details Date Type Department Care Team (Latest Contact Info) Description 03/01/2025 Travel Social History Tobacco Use Types Packs/Day Years [...] documented as of this encounter Care Teams Base Engineer Relationship Specialty Start Date End Date America Babb MD [address] [place] [address] PCP - General Family Medicine 06/09/24 documented as of this encounter
--- OUTSIDE RECORDS SUMMARY | 2025-03-01 13:10 | XMS_ITS | Encounter Summary ---
Author Organization [employer] Address [address] [facility] 7t [place] [address] Care Team Providers Care Vegetable Preparer Name Role Phone America Babb MD Primary Care Provider [phone] Encounter Details Date Type Department Care Team ([facility] st Contact Info) Description 07/09/2024 Orders Only [facility] CHC MED & PEDS [address] [place], [place] [phone] Dipti Martinez MD [address] [place] [address] Primary hypertension (Primary Dx) Social History Tobacco [...] documented as of this encounter Care Teams Vegetable Preparer Relationship Specialty Start Date End Date America Babb MD [address] [place] [address] PCP - General Family Medicine 06/09/24 documented as of this encounter
--- OUTSIDE RECORDS SUMMARY | 2025-03-01 13:10 | XMS_ITS | Encounter Summary ---
Author Organization [employer] Address [address] [facility] 7 [place] [address] Care Team Providers Care Trumpet Player Name Role Phone America Babb MD Primary Care Provider [phone] Reason for Visit * Reason Onset Date Comments chart prep 02/28/2025 Encounter Details Date Type Department Care Team ([facility] Contact Info) Description 02/28/2025 Telephone [facility] CHC MED & PEDS [address] [place], [place] [phone] America Babb MD [address] [place] [address] chart prep Social History Tobacco Use Types Packs/Day Years [...] encounter Miscellaneous Notes * Telephone Encounter - Angeline Bosch [place] - 02/28/2025 11:31 AM EDT Chart Prep Labs: not applicable Images: not applicable Referrals: not applicable Vaccines due: Hep B Screenings: colonoscopy Overdue care gaps: Not applicable documented in this encounter Plan of Treatment Not on file documented as of this encounter Visit Diagnoses Not on filedocumented in this encounter Additional Health Concerns Assessment Noted Time PHQ-9 Depression Total Score: 2 06/09/19 11:15 AM EST documented as of this encounter Care Teams Trumpet Player Relationship Specialty Start Date End Date America Babb MD [address] [place] [address] PCP - General Family Medicine 06/09/24 documented as of this encounter
--- OUTSIDE RECORDS SUMMARY | 2025-03-01 13:10 | XMS_ITS | Encounter Summary ---
Author Organization [employer] Address [address] [place] [address] 7 [place] [address] Care Team Providers Care Casing Tester Name Role Phone America Babb MD Primary Care Provider [phone] Reason for Referral * Consultation (Routine) - Closed Specialty Diagnoses / Procedures Referred By Chilango kim Referred To Contact Pulmonary Disease Diagnoses Encounter for health-related screening Dipti Martinez MD [address] [place] [address] Phone: tel: fax: Department, [facility] [address] [place], [place] Phone: tel: fax: Referral ID Status Reason Start Date Expiration Date V isits Requested Visits Authorized [id number] Closed Specialty Services Required 09/02/2024 09/02/2025 1 1 Encounter Details Date Type Department Care Team ([facility] st Contact Info) Description 08/27/2024 Orders Only [facility] CHC MED & PEDS [address] [place], [place] [phone] Dipti Martinez MD [address] [place], [place] [phone] Encounter for health-related screening (Primary Dx) Social [...] as of this encounter Plan of Treatment Scheduled Referrals Name Type Priority Associated Diagnoses Order Schedule Referral to Pulmonology Outpatient Referral Routine Encounter for health-related screening Expected: 09/02/2024 (Approximate), Expires: 09/02/2025 documented as of this encounter Procedures Procedure Name Priority Date/Time Associated Diagnosis Comments XR CHEST 2 VIEWS Routine 09/02/2024 9:40 AM EDT Encounter for health-related screening documented in this encounter Results * XR Chest 2 Views (09/02/2024 9:40 AM EDT) Anatomical Region Laterality Modality Chest Radiographic Val ging 09/02/2024 9:40 AM EDT Narrative 09/02/2024 9:59 AM EDT [address] [address] XRay Report Signed Patient: Ladonna Burnham MR#: [id number] : 1965 Acct:[id number] Age/Sex: 58 / F ADM Date: 09/02/24 Loc: [facility] Attending Dr: America Babb MD Ordering Physician: Dipti Martinez MD Date of Service: 09/02/24 Procedure(s): XR chest 2V Accession Number(s): [id number] cc: Dipti Martinez MD; America Babb MD [...] signed by Emile Bergeron MD in OV> 09/02/24954 DD/ 9 TD/TT: 09/02/2446 Cage Fighter: Procedure Note Donotuseinterpreter, Image - 09/02/[address] [address] XRay Report Signed Patient: Ladonna Burnham MMR#: [id number] : 1965Acct:[id number] Age/Sex: 58 / FADM Date: 09/02/24 Loc: [facility] Attending Dr: America Babb MD Ordering Physician: Dipti Martinez MD Date of Service: 09/02/24 Procedure(s): XR chest 2V Accession Number(s): [id number] cc: Dipti Martinez MD; America Babb MD [...] Emile Bergeron MD 09/02/2024 09:55 AM EDT Dictated By: Emile Bergeron MD Signed By: <Electronically signed by Emile Bergeron MD in OV> 09/02/24 0955 DD/ 0940 TD/TT: 09/02/24 0946 Cage Fighter: Dipti Martinez MD IMG XR PROCEDURES Edited Re sult - Final documented in this encounter Visit Diagnoses Diagnosis Encounter for health-related screening- Primary documented in this encounter Additional Health Concerns Assessment Noted Time PHQ-9 Depression Total Score: 2 06/09/19 11:15 AM EST documented as of this encounter Care Teams Casing Tester Relationship Specialty Start Date End Date America Babb MD [address] [place] [address] PCP - General Family Medicine 06/09/24 documented as of this encounter
--- OUTSIDE RECORDS SUMMARY | 2025-03-01 13:10 | XMS_ITS | Encounter Summary ---
Author Organization [employer] Address [address] [facility] 7t [place] [address] Care Team Providers Care Core Analysis Operator Name Role Phone America Babb MD Primary Care Provider [phone] Encounter Details Date Type Department Care Team ([facility] st Contact Info) Description 06/29/2024 Orders Only [facility] [address] [place] [address] Marisol Michael MD [address] [place] [address] Social History Tobacco Use Types Packs/Day Years [...] documented as of this encounter Care Teams Core Analysis Operator Relationship Specialty Start Date End Date America Babb MD [address] [place] [address] PCP - General Family Medicine 06/09/24 documented as of this encounter
--- OUTSIDE RECORDS SUMMARY | 2025-03-01 13:10 | XMS_ITS | Encounter Summary ---
Author Organization [email or web address] Address [address] [facility] 7t [place] [address] Care Team Providers Care Warehouse Operations Manager Name Role Phone America Babb MD Primary Care Provider [phone] Encounter Details Date Type Department Care Team ([facility] st Contact Info) Description 08/06/2024 Orders Only [facility] MEDICINE [address] [place] [address] Dipti Martinez MD [address] [place] [address] Primary hypertension (Primary Dx); Encounter for health-related [...] EDT) T Spot TB Borderli ne(A) Negative [facility] Comment:The patient's test r esult cannot [...] as aquantitative test. TS PANEL A 0 [facility] TS PANEL B 7 [facility] Negative Control Passed [facility] Positive Control Passed [facility] Comment:For additional infor frandy, please refer [email or web address] MDX/faq/[email or web address](This link is being provided for informational/educational purposes only.)REPORT COMMENT:REC'D AT [facility] TEST WAS PERFORMED AT:[employer] [id number] [place] [address]LAVLGUZBRIAN HAY MD,PHD 08/26/2024 10:3 4 AM EDT 08/26/2024 10:34 AM EDT us Dipti Martinez MD LAB BLOOD ORDERABLES Final Result [facility] [address] [place] [address] [phone] documented in this encounter Visit Diagnoses Diagnosis Primary hypertension- Primary Unspecified essential hypertension Encounter for health-related screening documented in this encounter Additional Health Concerns Assessment Noted Time PHQ-9 Depression Total Score: 2 06/09/19 25 11:15 AM EST documented as of this encounter Care Teams Warehouse Operations Manager Relationship Specialty Start Date End Date America Babb MD [address] [place] [address] PCP - General Family Medicine 06/09/24 documented as of this encounter
[2025-03-01 15:31] LABS: Alanine Aminotransferase 36 U/L (0-31); Albumin Level 4.9 g/dL (3.5-5.0); Alkaline Phosphatase 106 U/L (39-117); Aspartate Amino Transferase 34 U/L (5-31); Cholesterol 173 mg/dL (<200); HDL Cholesterol 49 mg/dL (>40); Total Protein 8.0 g/dL (6.5-8.0); Triglycerides 130 mg/dL (<150)
[2025-03-02 05:18] LABS: HBS Num1 0.56 mIU/mL (0-7.99); HBc Num1 0.09 S/CO (0.00-0.79); HBsAGNum1 0.54 S/CO (0.00-0.99); Hepatitis B Surface Antigen Negative (Negative); ~Hepatitis B Surface Antibody NONREACTIVE (Nonreactive)
== END 2025-03-01 11:46 | disposition home or self-care (01) ==
LOC: HO.CHCLDS 11:45
PROVIDERS: Visit Provider Family Medicine
DX: Z12.4 Encounter for screening for malignant neoplasm of cervix (principal); Z11.51 Encounter for screening for human papillomavirus (HPV); E78.5 Hyperlipidemia, unspecified; B35.1 Tinea unguium
CPT/HCPCS: 36415; 80061; 80076; 86704; 86706; 87340; 87626; 88175